=== PATIENT | female | born 1985 | race Caucasian/White ===

== ENCOUNTER 2019-10-18 01:44 | Inpatient (IN) | payer MEDICAID, OTHER ==
[~2019-10-18] VITALS: Ht 165.1 cm; Wt 69.2 kg
[2019-10-18 01:50] VITALS: BP_SYST 161
--- NOTE | 2019-10-18 01:50 | NUR ---
Patient triaged and placed in waiting room. VSS and patient appears in no acute distress at this time. Accompanied by FRIEND, awaiting available bed, and MD notified of need for MSE.
--- NOTE | 2019-10-18 02:29 | NUR ---
Patient to ER bed 8 to gown for evaluation. Side rails up. Report given to AVELINO BROOKE.
--- NOTE | 2019-10-18 02:44 | NUR ---
Pt presents to ER with c/o mouth pain. Pt states yesterday at approximately 7:30 am upper Right mouth pain started. Pt states upper right sided tooth pain is 10/10. Pt states upper right sided "tooth broke off awhile ago." Pt states swelling began around 9pm and has "just keeps getting worse." Upon assessment right cheek swollen, gums bright red with no discharge. Pt states nausea and fever with no report of vomiting. Will continue to monitor.
--- NOTE | 2019-10-18 03:24 | NUR ---
ER at bedside examining patient.
[2019-10-18] MEDS ORDERED: AMPICILLIN SODIUM/SULBACTAM NA 3 GM VIAL IM ONE (04:00)
[2019-10-18] MEDS ORDERED: MORPHINE 4 MG/ML INJ. SYRINGE IM ONE (04:00)
[2019-10-18] MEDS ORDERED: AMPICILLIN SODIUM/SULBACTAM NA 3 GM in NS 100 ML IV ONE (04:00)
[2019-10-18] MEDS ORDERED: NACL 0.9% 1,000 ML IV ONE (04:00)
[2019-10-18 04:01] LABS: BASOPHILS # (AUTO) 0.1 K/uL (0.0-0.2); BASOPHILS % (AUTO) 0.4 % (0.0-2.0); EOSINOPHILS # (AUTO) 0.2 K/uL (0.0-0.4); EOSINOPHILS % (AUTO) 1.2 % (0.0-4.0); HEMATOCRIT 41.2 % (36-48); HEMOGLOBIN 12.4 g/dL (12.0-16.0); LYMPHOCYTES # (AUTO) 2.6 K/uL (1.0-5.5); MEAN CORPUSCULAR HEMOGLOBIN 22 pg (27-31); MEAN CORPUSCULAR HGB CONC 30 % (32-36); MEAN CORPUSCULAR VOLUME 73 fL (79.0-98.0); MONOCYTES % (AUTO) 7.5 % (1.7-9.3); NEUTROPHILS # (AUTO) 9.8 K/uL (1.8-7.7); NEUTROPHILS % (AUTO) 71.9 % (40.0-70.0); PLATELET COUNT (AUTO) 336 K/uL (130-430); RED BLOOD CELL COUNT(AUTO) 5.62 MIL/uL (4.2-6.2); RED CELL DISTRIBUTION WIDTH 17.1 % (9.0-15.0); WHITE BLOOD COUNT (AUTO) 13.7 K/uL (4.8-10.8)
--- NOTE | 2019-10-18 04:11 | NUR ---
Per MD Hardy, "no blood cultures needed at this time, pt will be discharged."
[2019-10-18 04:13] LABS: CALCIUM 8.8 mg/dL (8.4-11.0); CREATININE 0.61 mg/dL (0.55-1.30); POTASSIUM 3.6 mmol/L (3.5-5.1)
--- NOTE | 2019-10-18 04:20 | NUR ---
Pt medicated per MD orders. Pt tolerated well. Will continue to monitor.
--- NOTE | 2019-10-18 04:21 | NUR ---
Pt signed consent for contrast.
--- NOTE | 2019-10-18 04:56 | NUR ---
Pt off floor to CT with nuclear cardiology technologist via gurney in stable condition.
[2019-10-18] MEDS ORDERED: IOHEXOL 100 ML IV ONE (05:07)
--- NOTE | 2019-10-18 05:08 | NUR ---
Pt returned from CT via [facility] in stable condition. Will continue to monitor.
--- NOTE | 2019-10-18 05:51 | NUR ---
Got admit orders and reminded MD Hardy to order blood cultures. Per MD Hardy, "I'm not going to order them, she doesn't need them. If it comes back, they can talk to me."
--- NOTE | 2019-10-18 06:15 | NUR ---
Patient will be admitted to care of [facility]. Admitted to Med/Surg unit. Awaiting bed placement from Medical Surgical unit. Belongings list completed. Complete and up to date summary report printed. SBAR report to be given at bedside with opportunity for questions.
--- NOTE | 2019-10-18 07:10 | NUR ---
Report given to EDWARDO Gonzalez to endorse care.
--- NOTE | 2019-10-18 07:15 | NUR ---
Report received from EDWARDO Majano. Patient to be admitted to floor. Called and spoke with Marisol regarding admission room.
--- NOTE | 2019-10-18 08:00 | NUR ---
Patient will be admitted to care of Dr. Phillips. Admitted to Med Surg unit. Will go to room 109A. Belongings list completed. Complete and up to date summary report printed. SBAR report to be given at bedside with opportunity for questions.
--- NOTE | 2019-10-18 08:05 | NUR ---
Vital signs are taken: BP 151/108. Patient states she has a history of high blood pressure. Usually takes clonidine from PCP, but has recently stopped. MD aware. Will recheck in 20 minutes.
[2019-10-18] MEDS ORDERED: hydrALAZINE HCL 20 MG/ML VIAL IVP ONE (08:30)
--- NOTE | 2019-10-18 08:47 | NUR ---
Patient was given IVP Hydralazine. BP recheck was 150/80. Patient aware we are pending transfer to room 109A.
--- NOTE | 2019-10-18 08:59 | NUR ---
CONSULTATION PAGED REASON FOR CONSULTATION:CELLULITIS WAS CONSULT CALLED?Y PERSON WHO WAS NOTIFIED:RASHI CONSULTING PHYSICIAN:ADRIANA CORBETT (DAVID CLIFTON MANPOWER DEVELOPMENT SPECIALIST MANAGER) MANAGER INSTALLATION SPECIALTY:ID MANAGER INSTALLATION PHONE NUMBER:[phone] REQUESTING PHYSICIAN:NATANAEL SHINE
[2019-10-18] MEDS ORDERED: AMPICILLIN SODIUM/SULBACTAM NA 3 GM VIAL IV SCH (09:00)
--- NOTE | 2019-10-18 09:11 | NUR ---
ADMIT NOTE Received pt from ER to the floor with a diagnosis of right facial cellulitis. Admission process initiated. patient oriented to pain management, safety and call light-teach back done.
[2019-10-18] MEDS: MORPHINE 2 MG/ML INJ. SYRINGE IVP PRN ×2 (09:19→20:38)
[2019-10-18 09:29] VITALS: BP_SYST 134
--- NOTE | 2019-10-18 10:00 | NUR ---
RN NOTE REPORT WAS RECEIVED FROM SANAZ RENEE THE CHARGE NURSE, PATIENT WAS ASSESSED, VITAL SIGNS ARE STABLE. PATIENT IS ALERT ORIENTED X4, WAS GIVEN HER MORPHINE FOR HER PAIN, PATIENT IS NOW PAIN FREE. BED AT LOW POSITION AND CALL LIGHT WITHIN REACH, WILL CONTINUE TO MONITOR.
[2019-10-18] MEDS: VANCOMYCIN HCL 1,000 MG in NS 250 ML IV SCH ×2 (11:11→22:07)
[2019-10-18 12:00] VITALS: BP_SYST 128
--- NOTE | 2019-10-18 12:00 | NUR ---
RN NOTE PATIENT WAS GIVEN HER IVPB OF ANTIBIOTICS. PATIENT WAS SERVED HER LUNCH, PATIENT COULD NOT CHEW THE BEEF SENT TO HER BY THE KITCHEN DUE TO HER MOUTH SWELLING. AND ALTERNATIVE PUREE WAS ORDERED TO THE PATIENT. PATIENT WAS EDUCATED ABOUT INFECTION CONTROL. WILL CONTINUE TO ROUND AND MONITOR THE PATIENT.
[2019-10-18] MEDS: AMPICILLIN /SULBACTAM NA 3 GM in NORMAL SALINE 100 ML IV SCH ×2 (12:34→20:46)
--- NOTE | 2019-10-18 13:51 | NUR ---
RN NOTE PATIENT WAS GIVEN HER IVPB OF ANTIBIOTICS. PATIENT DENIES PAIN OR DISCOMFORT. WILL CONTINUE TO MONITOR.
[2019-10-18 16:00] VITALS: BP_SYST 134
--- NOTE | 2019-10-18 16:00 | NUR ---
RN NOTE PATIENT IS RESTING IN BED. SLEEPING, DENIES PAIN OR DISCOMFORT. WILL CONTINUE TO MONITOR.
--- NOTE | 2019-10-18 18:00 | NUR ---
RN CLOSING NOTE PATIENT WAS HELPED TO THE BATHROOM, PATIENT DENIES PAIN OR DISCOMFORT, WAS SERVED HER DINNER, FAMILY MEMBERS CAME OVER. WILL CONTINUE TO MONITOR AND WILL ENDORSE TO NEXT SHIFT.
[2019-10-18 19:00] VITALS: BP_SYST 135
--- NOTE | 2019-10-18 19:45 | NUR ---
A/A/OX4.DENIES ANY DISCOMFORT @ THIS TIME.FAMILY @ THE BS.NOTED RIGHT FACIAL SIDE TO HER EYELID SWOLLEN.AFEBRILE.INSTRUCTED TO USE CALL LIGHT NEEDED;WITHIN REACH.
[2019-10-18 20:00] VITALS: BP_SYST 135
--- NOTE | 2019-10-18 20:38 | NUR ---
MORPHINE 2MG IV ADM FOR ACHING PAIN ON HER SWOLLEN FACE SCALE 8/10.
[2019-10-18] MEDS ORDERED: ENOXAPARIN SODIUM 40 MG/0.4 ML SYRINGE SUBCUT SCH (21:00)
--- NOTE | 2019-10-18 21:08 | NUR ---
PER PT PAIN ON HER SWOLLEN FACE WITH RELIEF POST MORPHINE.
--- NOTE | 2019-10-18 22:00 | NUR ---
SNACKS GIVEN PER PT'S REQUEST.
[2019-10-19] VITALS: BP_SYST 137
--- NOTE | 2019-10-19 | NUR ---
RESTING COMFORTABLY IN NO ACUTE DISTRESS.AFEBRILE.
--- NOTE | 2019-10-19 02:00 | NUR ---
RESTING COMFORTABLY WITH BOTH EYES CLOSED IN N0 ACUTE DISTRESS.
[2019-10-19 04:00] VITALS: BP_SYST 136
--- NOTE | 2019-10-19 04:00 | NUR ---
AFEBRILE. BP 136/92.DENIES ANY DISCOMFORT @ THIS TIME.
[2019-10-19] MEDS: AMPICILLIN /SULBACTAM NA 3 GM in NORMAL SALINE 100 ML IV SCH ×2 (04:02→12:51)
--- NOTE | 2019-10-19 06:40 | NUR ---
ENDORSED RESTING COMFORTABLY IN NO ACUTE DISTRESS.SAFETY MAINTAINED.CALL LIGHT WITHIN REACH.
[2019-10-19 07:24] LABS: BASOPHILS # (AUTO) 0.1 K/uL (0.0-0.2); BASOPHILS % (AUTO) 0.6 % (0.0-2.0); EOSINOPHILS # (AUTO) 0.2 K/uL (0.0-0.4); EOSINOPHILS % (AUTO) 2.3 % (0.0-4.0); HEMATOCRIT 37.7 % (36-48); LYMPHOCYTES # (AUTO) 3.1 K/uL (1.0-5.5); LYMPHOCYTES % (AUTO) 38.1 % (20.5-51.5); MEAN CORPUSCULAR HEMOGLOBIN 23 pg (27-31); MEAN CORPUSCULAR HGB CONC 32 % (32-36); MEAN CORPUSCULAR VOLUME 73 fL (79.0-98.0); MONOCYTES # (AUTO) 0.7 K/uL (0.0-1.0); MONOCYTES % (AUTO) 8.9 % (1.7-9.3); NEUTROPHILS # (AUTO) 4.1 K/uL (1.8-7.7); NEUTROPHILS % (AUTO) 50.1 % (40.0-70.0); PLATELET COUNT (AUTO) 280 K/uL (130-430); RED BLOOD CELL COUNT(AUTO) 5.14 MIL/uL (4.2-6.2); RED CELL DISTRIBUTION WIDTH 17.4 % (9.0-15.0); WHITE BLOOD COUNT (AUTO) 8.1 K/uL (4.8-10.8)
[2019-10-19 07:31] LABS: CALCIUM 8.1 mg/dL (8.4-11.0); CREATININE 0.61 mg/dL (0.55-1.30); POTASSIUM 3.6 mmol/L (3.5-5.1)
--- NOTE | 2019-10-19 08:00 | NUR ---
RN INITIAL NOTES RECEIVED PATIENT IN BED ALERT ASLEEP NO DISTRESS , WITH RT SIDE FACIAL SWELLING , NO DISTRESS RESP EVEN AND UNLABORED , RISE AND FALL OF THE CHEST NOTED . NO FACIAL GRIMACE OBSERVED
[2019-10-19 08:15] VITALS: BP_SYST 141
--- NOTE | 2019-10-19 10:00 | NUR ---
ROUNDS PATIENT NOT IN ANY DISTRESS , CONT WITH IV ATB
[2019-10-19] MEDS: VANCOMYCIN HCL 1,000 MG in NS 250 ML IV SCH (10:02)
[2019-10-19 11:07] VITALS: BP_SYST 141
--- NOTE | 2019-10-19 12:30 | NUR ---
ROUNDS PATIENT AMBULATES TO THE BR NO DISTRESS
--- NOTE | 2019-10-19 12:45 | NUR ---
Content Strategist: met with pt. to conduct a DCPA. DIRECTOR OF CORPORATE STRATEGY introduced self to pt. who was lying down with her eyes closed. She stated she was uncomfortable, but willing to participate in the interview. Pt. stated she lives in a [facility] w/ grandpa and boyfriend for past year. She stated she has family support once she leaves the hospital, her grandpa and her boyfriend. She stated her parents live in [place]. Pt. denied needing any mental health services. She stated she has never been Dx. with any mental health issues. DIRECTOR OF CORPORATE STRATEGY will remain available as needed.
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
[2019-10-19] MEDS: MORPHINE 2 MG/ML INJ. SYRINGE IVP PRN (13:49)
--- NOTE | 2019-10-19 14:00 | NUR ---
ROUNDS PATIENT TOLERATED IV ATB , WAS SEEN BY DR RILEY WITH NOTES TO CONT CARE AND MEDS, EXPLAINED TO PATIENT
[2019-10-19 16:00] VITALS: BP_SYST 138
--- NOTE | 2019-10-19 17:45 | NUR ---
AMA PATIENT STATED SHE WANTS TO GO HOME INFORMED DR RILEY AND SAID ID WANTS HER ON IV ATB FOR THE CELLULITIS OF THE FACE , AND IF PATIENT WONT AGREE IT WILL BE AMA
--- NOTE | 2019-10-19 18:40 | NUR ---
AMA PATIENT LEFT AMA DESPITE OF EXPLANATION R/B OF AMA , PATIENT STATED , I FULLY UNDERSTOOD R/B OF GOING AMA , EXPLAINED IV ATB FOR HER CELLULITIS IS A MUST BUT SHE SAID SHE NEEDS TO TAKE CARE OF VERY IMPT. PERSONAL MATTER AT HOME. PATIENT SIGNED AMA . Addendum: 10/19/19 at 1847 by Heather Mix RN PATIENT STATED SHE WILL JUST FOLLOW UP WITH HER DENTIST OR PCP FOR PO ATB
== END 2019-10-19 18:40 | disposition left against medical advice (07) | DRG 383 ==
LOC: SED 01:44 → SMU 06:02
PROVIDERS: ADMIT Family Medicine; ATTEND Family Medicine
DX: L03.211 Cellulitis of face (principal); E87.1 Hypo-osmolality and hyponatremia; F41.9 Anxiety disorder, unspecified; I10 Essential (primary) hypertension; Z88.1 Allergy status to other antibiotic agents; Z88.6 Allergy status to analgesic agent
CPT/HCPCS: 36415; 70487; 80048; 85025; 87040-TC; 96365; 96375; 99285; J0295; J0360; J1650; J2270; J3370; J7040; J7050; Q9967